=== PATIENT | male | born 1955 | race Two or more races ===

== ENCOUNTER 2019-12-23 13:23 | Emergency (ER) | payer OTHER ==
[~2019-12-23] VITALS: Ht 165.1 cm; Wt 82.6 kg
[2019-12-23] MEDS ORDERED: KETOROLAC TROMETHAMINE 15 MG INJ ONE (14:29)
--- NOTE | 2019-12-23 14:29 | NUR ---
PATIENT WAS SEEN BY . MED GIVEN ORDERED. CT IN PROCESS
[2019-12-23] MEDS ORDERED: KETOROLAC TROMETHAMINE 15 MG INJ IM ONE (14:30)
[2019-12-23 15:33] LABS: *BILIRUBIN,URIN NEGATIVE (NEGATIVE); *BLOOD, URINE NEGATIVE (NEGATIVE); *CLARITY,URINE CLEAR (CLEAR); *COLOR,URINE YELLOW (YELLOW); *KETONES,URINE NEGATIVE (NEGATIVE); *UROBILINOGEN,URINE 0.2 E.U./dl (NORMAL); LEUKOCYTE ESTERASE ,URINE NEGATIVE (NEGATIVE); NITRITE, URINE NEGATIVE (NEGATIVE); PH,URINE 5.5 (5.0-8.0); UGLUCOSE NEGATIVE (NEGATIVE)
--- NOTE | 2019-12-23 15:48 | NUR ---
PATIENT IS AWARE THAT HE MUST FOLLOW UP WITH HIS PMD REGARDING ABNORMAL LYMPH NODES IN ABDOMEN. PATIENT STATES HE UNDERSTANDS. DISC WITH IMAGING GIVEN TO PATIENT
--- NOTE | 2019-12-23 15:49 | NUR ---
PATIENT STATES PAIN HAS DIMINISHED. DC, RX AND FOLLOW UP INSTRUCTIONS GIVEN AND EXPLAINED TO PATIENT WHO STATES HE UNDERSTANDS ALL INSTRUCTIONS. REPORTS/DISC OF IMAGING GIVEN
== END 2019-12-23 15:52 | disposition home or self-care (01) ==
LOC: ER 13:23
DX: M54.5 Low back pain (principal); M54.2 Cervicalgia; R07.89 Other chest pain; V43.53XA Car driver injured in collision with pick-up truck in traffic accident, initial encounter; Y92.410 Unspecified street and highway as the place of occurrence of the external cause; R00.1 Bradycardia, unspecified; R59.0 Localized enlarged lymph nodes; N28.1 Cyst of kidney, acquired; M51.36 Other intervertebral disc degeneration, lumbar region; M48.061 Spinal stenosis, lumbar region without neurogenic claudication; M48.02 Spinal stenosis, cervical region; I10 Essential (primary) hypertension
CPT/HCPCS: 71250; 72125; 72131; 81001; 96372; 99285; J1885; A4663

== ENCOUNTER 2020-07-14 08:28 | Emergency (ER) | payer OTHER ==
[~2020-07-14] VITALS: Ht 167.6 cm; Wt 82.6 kg
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
--- NOTE | 2020-07-14 08:41 | NUR ---
MD@bedside, medical screening exam in progress
[2020-07-14] MEDS ORDERED: HYDR-3980 PO (08:49)
--- NOTE | 2020-07-14 10:01 | NUR ---
Patient was discharged to home in stable condition with steady gait. Written and verbal after care instructions were given to patient. Patient verbalized understanding and compliance of instructions. Prescription was also given by MD. Stressed follow up primary doctor or return to ER for worsening s/s were emphasized. CD copy & results of all tests's results were given to patient.
== END 2020-07-14 10:01 | disposition home or self-care (01) ==
LOC: ER 08:28
DX: S16.1XXA Strain of muscle, fascia and tendon at neck level, initial encounter (principal); V43.52XA Car driver injured in collision with other type car in traffic accident, initial encounter; Y92.410 Unspecified street and highway as the place of occurrence of the external cause; M54.5 Low back pain; M25.512 Pain in left shoulder
CPT/HCPCS: 70450; 72100; 72125; 73030; A4663